=== PATIENT | female | born 1990 | race Caucasian/White ===

== ENCOUNTER 2017-07-02 22:19 | Emergency (ER) | payer MEDICAID ==
[~2017-07-02] VITALS: Ht 170.2 cm; Wt 70.3 kg
[2017-07-02 22:32] VITALS: BP_SYST 132
--- NOTE | 2017-07-02 22:40 | NUR ---
Placed in room 04. Report given to SHELBIE Bell.
--- NOTE | 2017-07-02 22:45 | NUR ---
Patient arrived to ED a/o x 4 with c/o bilateral aching 4/10 breast pain. Patient recieved US by primary care physician. Patient reports coming to ED for second opinion. No redness or inflammation reported. Patient reports pain does not radiate. Denies SOB. Denies CP. Respirations even and unlabored. Will continue to monitor.
--- NOTE | 2017-07-02 22:55 | NUR ---
ED MD Birch at bedside for medical evaluation.
[2017-07-02 23:24] VITALS: BP_SYST 125
--- NOTE | 2017-07-02 23:24 | NUR ---
Patient given written and verbal discharge instructions and verbalizes understanding. ER MD discussed with patient the results and treatment provided. Patient in stable condition. ID arm band removed. No Rx given. Patient educated on pain management and to follow up with PMD. Pain Scale 3/10 at this time, tolerable for patient. Opportunity for questions provided and answered.
== END 2017-07-02 23:24 | disposition home or self-care (01) ==
LOC: SED 22:19
DX: N64.4 Mastodynia (principal); R07.89 Other chest pain; F41.9 Anxiety disorder, unspecified
CPT/HCPCS: 99281

== ENCOUNTER 2017-08-14 18:09 | Emergency (ER) | payer MEDICAID ==
[~2017-08-14] VITALS: Ht 170.2 cm; Wt 70.3 kg
[2017-08-14 18:43] VITALS: BP_SYST 112
[2017-08-14 20:22] VITALS: BP_SYST 112
== END 2017-08-14 20:22 | disposition home or self-care (01) ==
LOC: SED 18:09
DX: J11.1 Influenza due to unidentified influenza virus with other respiratory manifestations (principal); R11.2 Nausea with vomiting, unspecified; R19.7 Diarrhea, unspecified; F41.9 Anxiety disorder, unspecified
CPT/HCPCS: 36415; 86710; 99284

== ENCOUNTER 2021-08-23 15:52 | Emergency (ER) | payer BC, SELFPAY ==
[~2021-08-23] VITALS: Ht 170.2 cm; Wt 106.6 kg
[2021-08-23 15:52] VITALS: BP_SYST 131
--- NOTE | 2021-08-23 15:52 | NUR ---
TRIAGED OUT IN TRIAGE TENT, AWAITING ER BED AVAILABILITY
--- NOTE | 2021-08-23 16:10 | NUR ---
PT STATES ONE WEEK WITH SORE THROAT, CONGESTION AND NAUSEA. 3 DAYS WITH DIARRHEA. PT STATES SHE WENT TO WORK AND WAS SENT HOME AFTER FREQUENT TRIPS TO RESTROOM. PT REQUESTING A COVID TEST.
--- NOTE | 2021-08-23 16:20 | NUR ---
DR CEDILLO OUT TO TRIAGE TENT FOR EVALUATION
[2021-08-23] MEDS ORDERED: LOPE2CAP PO (16:48)
[2021-08-23] MEDS ORDERED: GUAI100S14 PO (16:48)
[2021-08-23 18:06] VITALS: BP_SYST 126
--- NOTE | 2021-08-23 18:07 | NUR ---
Patient given written and verbal discharge instructions and verbalizes understanding. ER MD discussed with patient the results and treatment provided. Patient in stable condition. ID arm band removed. Rx of GUAIFENESIN, IMODIUM given. Patient educated on pain management and to follow up with PMD. Pain Scale 0/10. Opportunity for questions provided and answered. Medication side effect fact sheet provided.
== END 2021-08-23 18:06 | disposition home or self-care (01) ==
LOC: SED 15:52
DX: R50.9 Fever, unspecified (principal); R05.9 Cough, unspecified; F41.9 Anxiety disorder, unspecified; Z79.899 Other long term (current) drug therapy; Z20.822 Contact with and (suspected) exposure to COVID-19
CPT/HCPCS: 99283; U0003